=== PATIENT | male | born 1980 | race Caucasian/White ===

== ENCOUNTER 2024-07-28 11:15 | Emergency (ER) | payer BC, SELFPAY ==
[2024-07-28 11:20] VITALS: BP 166/104
[2024-07-28 11:40] VITALS: BMI 33.0
[2024-07-28 12:01] LABS: % Basophils 0.4 % (0-2); % Eosinophils 3.6 % (0-6); % Immature Granulocytes 0.2 % (0-0.5); % Monocytes 9.7 % (1.7-9.3); % Neutrophils 48.1 % (42.2-75.2); Absolute Eosinophils 0.2 10^3/uL (0-0.7); Absolute Monocytes 0.5 10^3/uL (0.1-0.6); Absolute Neutrophils 2.5 10^3/uL (1.4-6.5); Hematocrit 43.7 % (39.0-52.0); Hemoglobin 15.6 g/dL (13.0-18.0); Mean Corp Hgb Conc. 35.7 g/dL (33.0-37.0); Mean Corpuscular Hgb 31.3 pg (27.0-31.0); Mean Corpuscular Volume 87.8 fL (80.0-94.0); Mean Platelet Volume 10.4 fL (7.4-10.4); Nucleated Red Blood Cells % 0 % (-); Platelet Count 199 10^3/uL (130-400); Red Blood Cell Count 4.98 10^6/uL (4.70-6.10); White Blood Cell Count 5.3 10^3/uL (4.8-10.8)
[2024-07-28 12:19] LABS: ALT (SGPT) 46 U/L (0-50); AST (SGOT) 39 U/L (17-59); Albumin 5.1 g/dl (3.5-5.0); Alkaline Phosphatase 56 U/L (38-126); Blood Urea Nitrogen 18 mg/dl (9-20); Calcium 9.7 mg/dl (8.4-10.2); Carbon Dioxide 28 mmol/L (22-30); Chloride 100 mmol/L (98-107); Estimated Creatinine Clearance 115 ml/min; Glucose 104 mg/dl (70-99); Potassium 4.7 mmol/L (3.5-5.1); Sodium 139 mmol/L (135-145); Total Bilirubin 0.5 mg/dl (0.2-1.3); Total Protein 7.8 g/dl (6.3-8.2); eGFR > 60.00
[2024-07-28 12:31] LABS: Troponin I < 0.012 ng/ml
--- NOTE | 2024-07-28 12:53 | ED.GENMED ---
History of Present Illness
General
Chief Complaint: Dizziness
Source: patient
Exam Limitations: none
Time Seen by Provider: 07/28/24 12:09
History of Present Illness
History of Present Illness:
44 y/o M
h/o some lower back pains chroniclaly
says that he has been having intertmittent sypmtoms, sometimes togheter but mostly where he feels off balance 'like he's walking with his head tilted', papitations felt as fluttering in his chest, and occ ches tpains lasting seconds
for the past 2 mo
he has had w/u for these syptmos previously
he apaprently doesn't recall but he saw cardiology, had stress echo, holter
the holter showed very rare PVCs without any significant runs of tachycardia or pauses
his stress echo was normal, low risk stress test, [facility] 2018
he says he has felt these symptoms recur the past few months
today he happened to have a pain in his back that seemed to also be present in his chest which he sometimes gets over the past month and decdied to get checked out. he has no symptoms currently
his dizziness is not really room spinning vertigo and he doesn't feel it when he turns his head side to side.
he did not recall that he was prescribed meclizine before for this; he hasn't taken it recently.
he has no trouble walking despite syaing jaime tit feels like he is off balance
he has no headache, pleuritic pain, syncope, vomiting, fever, etc
pt has no fhx of cardiac disease
nonsmoker
weekly alcohol
he says that he does a fair amount of traveling, went to [place] and drives to [place] frequently
no leg swelling
Past History
Past History
ED Past Medical History: None
ED Past Surgical History: Orthopedic
Social History
Tobacco: Non-smoker
Living: with family
Employment: Employed
Review of Systems
Review of Systems
Allergies reviewed?: Yes
All Other Systems: Not applicable
Phy Exam
Physical Exam
Physical Exam:
GENERAL: Alert , in no apparent distress
EYE: pupils equal and reactive
NECK: Supple
ENT: o/p clr, mmm.
CARDIAC: Regular rate and rhythm .
LUNGS: Clear breath sounds bilaterally, no acute respiratory distress, no wheezes/rales/rhonchi
ABDOMEN: Soft, without focal tenderness, no r/g, no cvat, normal bowel sounds
NEUROLOGICAL: Alert and oriented, no focal neuro deficits, cn intasct, 5/5 strength, nomrla snesation, finger to nose normal, romberg neg, protnator drift neg
SKIN: Warm and dry, skin intact.
MUSCULOSKELETAL: No edema, well perfused. neg claude's sign
PSYCH: Normal and appropriate interaction.
Course
Orders/Labs/Results
Orders:
Orders
07/28/24 11:16
EKG [Electrocardiogram (*1)] Urgent
Reason for Study: Palpitations
EKG- Treatment ONCE
07/28/24 11:45
D-Dimer Urgent
07/28/24 11:47
Complete Blood Count/With Diff Urgent
Comprehensive Metabolic Panel Urgent
Troponin I Urgent
07/28/24 13:15
CT Head W/o Iv Contrast Urgent
Comment:
Reason For Exam: feels off balance for a few months
07/28/24 13:57
CR Chest - 2 Views Urgent
Comment:
Reason For Exam: chest pain
Abnormal Lab Results
07/28/24
11:47
MCH 31.3 H pg
(27.0-31.0)
Monocytes % 9.7 H %
(1.7-9.3)
Glucose 104 H mg/dl
(70-99)
Albumin 5.1 H g/dl
(3.5-5.0)
07/28/24 11:47
07/28/24 11:47
Vital Signs
Initial and Last Documented VS:
Initial Vital Signs
Temp Pulse Resp BP Pulse Ox
36.8 C 66 16 166/104 98
07/28/24 11:20 07/28/24 11:20 07/28/24 11:20 07/28/24 11:20 07/28/24 11:20
Last Documented Vital Signs
Temp Pulse Resp BP Pulse Ox
36.8 C 74 18 139/85 99
07/28/24 11:20 07/28/24 14:45 07/28/24 14:45 07/28/24 14:45 07/28/24 14:45
MDM/Problems Addressed
Differential Diagnosis Includes:
palpitations, PVCs, orthostasis, PE, near syncope, dehdyration, caffeine use, stress
MDM/Problems Addressed:
44 y/o M
has had intermittent palptiatoins/lightheaded/dizziness for years;
had w/u in 2019 at [facility], very few PVC on holter
neg stress echo
has had borderlin HTN for years not treated
drinks a lot of caffeine
has more symptoms recently in the past 2 mo
unclear why pt is here today vs any other day since he has had these symptoms for a while but did say he had some chest discomfort for a few seocnds thi smorning
he has never had exetional symptoms
no syncope
no pleuritic pain but drives a lot
on exam well apeparing
borderlin bp 130/90
orthostatics done by me and totally negative, asypmtomatic
neuro nitact, despite saying he feels like he is off balance
screening head ct neg
d dimer neg
trop neg
ekg normal
sinus on the monitor
no ectopy
lytes normal
d/c home outpatient f/u
reduce caffeine
*Critical Care Note
Total Time (30-74mins, 75-104mins- exclusive of procedures): Not Applicable
ED Attending Note
-
Portions of this chart may have been created with voice recognition software.� Occasional wrong word or��sound alike� substitutions may have occurred due to the inherent limitations of voice recognition software.
Discharge Plan
Departure
Patient Disposition: Home (Routine Discharge)
Date of Disposition: 07/28/24
Time of Disposition: 14:38
Patient with high blood pressure during this ER visit?: Yes
Condition: Fair
Covid-19: Not Applicable
Discharge Problem:
Palpitations, Elevated blood pressure reading, Chest pain
Instructions: Dizziness, Nonvertigo, (DC), Palpitations ED, BLOOD PRESSURE
Prescriptions:
No Action
meclizine 25 MG tablet
25 mg PO Q8HPRN PRN (Reason: vertigo) Qty: 15 1RF
doxycycline hyclate 100 MG capsule
100 mg PO Q12 Qty: 42 0RF
Referrals:
Dariusz Rose DO [Active] - Follow up in 1 week (cardiology)
Duncan Henderson MD [Family Provider] - Follow up in 1 week
Activity Restrictions/Additional Instructions:
WE ARE NOT ENTIRELY SURE THE CAUSE OF YOUR SYMPTOMS BUT IT DOES NOT SEEM THAT THERE IS AN EMERGENCY A CAUSE
YOU HAVE WORN A MONITOR BEORE SHOWING THAT YOU TEND TO HAVE A RARE AMOUNT OF EXTRA BEATS
YOU CAN TRY CALLING THE PATTERN [employer] FOR FOLLOW UP TO SEE IF THEY WOULD LIKE TO HAVE YOU WEAR THE MONITOR AGAIN FOR 48 HOURS. IT WAS IN 2019 ORIGINALLY
UNTIL THEN, LIMIT CAFFEINE, DRINK MORE WATER AND HAVE WELL BALANCED DIET.
TRY TO REDUCE SODIUM
GET UP SLOWLY FROM SITTING
YOUR BLOOD PRESSURE WAS MILDLY ELEVATED
FOLLOW UP WITH EITHER YOUR FAMILY DOCTOR OR THE [employer] FOR TEHSE SYMPTOMS
I AM NOT SURE WHAT IS CAUSING YOUR BALANCE ISSUES/DIZZINESS BUT YOUR HEAD CT WAS NEGATIVE
RETURN FOR :SEVERE SYMPTOMS, PASSING OUT, SEVERE DIZZINESS/INABILITY TO WALK, HEADACHE ET.C
Interventions
Interventions:
*Risk Screen - Suicide Last Done: 07/28/24 11:20
*General Assessment Last Done: 07/28/24 11:40
*Neglect/Abuse Screening Last Done: 07/28/24 11:20
ED- Fall Risk Assessment Last Done: 07/28/24 11:40
*ED COVID-19 Vaccine History Last Done: 07/28/24 11:40
*Nursing Disposition Last Done: 07/28/24 14:45
ED- Neurological Assessment Last Done: 07/28/24 12:21
ED- Cardiac Assessment Last Done: 07/28/24 11:40
ED Swallowing Screen Last Done: 07/28/24 14:45
Discharge Date and Time
Discharge Date/Time: 07/28/24 14:46
Print Language: BARBADIAN
[2024-07-28 13:09] VITALS: BP 137/95
[2024-07-28 13:11] VITALS: BP 130/95
[2024-07-28 13:41] LABS: D-Dimer 0.28 ug/mlFEU (0.00-0.50)
[2024-07-28 14:45] VITALS: BP 139/85
== END 2024-07-28 14:46 | disposition home or self-care (01) ==
LOC: EMR 11:15
PROVIDERS: Emergency Medicine; Physician Assistant; EMERGENCY PHYSICIAN Emergency Medicine; FAMILY PHYSICIAN Internal Medicine Geriatric Medicine
DX: R07.89 Other chest pain (principal); R00.2 Palpitations; R03.0 Elevated blood-pressure reading, without diagnosis of hypertension
CPT/HCPCS: 99285; 70450; 71046; 80053; 84484; 85025; 85379; 93005